=== PATIENT | male | born 1985 ===

== ENCOUNTER → 2022-05-11 | Outpatient (CLI) | payer OTHER ==
[2022-05-11 22:41] LABS: Campylobacter Sp Not Detected (NOT DETECT); Plesiomonas Shigelloides Not Detected (NOT DETECT); Salmonella Sp Not Detected (NOT DETECT)
[2022-05-11 22:42] LABS: Adenovirus F 40/41 Not Detected (NOT DETECT); Astrovirus Not Detected (NOT DETECT); Cryptosporidium Not Detected (NOT DETECT); Cyclospora Cayetanensis Not Detected (NOT DETECT); E. Coli O157 Not Detected (NOT DETECT); Entamoeba Histolytica Not Detected (NOT DETECT); Enteroaggregative E. coli-EAEC Not Detected (NOT DETECT); Enteropathogenic E. coli-EPEC Not Detected (NOT DETECT); Enterotoxigenic E. coli-ETEC Not Detected (NOT DETECT); Giardia Lamblia Not Detected (NOT DETECT); Norovirus GI/GII Not Detected (NOT DETECT); Rotavirus A Not Detected (NOT DETECT); Sapovirus Not Detected (NOT DETECT); Shiga Toxin-prod E. coli-STEC Not Detected (NOT DETECT); Shigella/Enteroin E. coli-EIEC Not Detected (NOT DETECT); Vibrio Cholerae Not Detected (NOT DETECT); Vibrio Sp Not Detected (NOT DETECT); Yersinia Enterocolitica Not Detected (NOT DETECT)
== END ==
LOC: LAB 17:04 → LAB SHORT 17:04
PROVIDERS: Physician Assistant Medical
DX: R19.7 Diarrhea, unspecified (principal)
CPT/HCPCS: 87507

== ENCOUNTER 2022-06-09 10:24 | Inpatient (IN) | payer OTHER ==
[~2022-06-09] VITALS: Ht 172.7 cm; Wt 67.2 kg
[2022-06-09] MEDS ORDERED: CYMBALTA30 MG PO (11:04)
[2022-06-09 11:41] LABS: Source, Urine Clean Catch
[2022-06-09 11:45] LABS: BASOPHILS ABSOLUTE AUTO 0.04 K/mm3 (0.00-0.23); BASOPHILS PERCENT AUTO 1 % (0-2); EOSINOPHILS ABSOLUTE AUTO 0.19 K/mm3 (0.00-0.68); EOSINOPHILS PERCENT AUTO 2 % (0-6); Hematocrit 41.4 % (37.0-53.0); IMMATURE GRAN ABSOLUTE AUTO 0.02 K/mm3 (0.00-0.10); IMMATURE GRAN PERCENT AUTO 0 % (0-1); LYMPHOCYTES ABSOLUTE AUTO 1.69 K/mm3 (0.84-5.20); LYMPHOCYTES PERCENT AUTO 21 % (21-46); MONOCYTES ABSOLUTE AUTO 0.63 K/mm3 (0.16-1.47); MONOCYTES PERCENT AUTO 8 % (4-13); Mean Corpuscular HGB 24.1 pg (26.0-34.0); Mean Corpuscular HGB Conc 31.4 g/dL (31.5-36.5); Mean Corpuscular Volume 77 fL (80-100); Mean Platelet Volume 10.1 fL (9.1-12.4); NEUTROPHILS ABSOLUTE AUTO 5.57 K/mm3 (1.96-9.15); NEUTROPHILS PERCENT AUTO 69 % (41-73); Platelet Count 216 K/mm3 (150-400); RDW Coefficient Variation 15.9 % (11.7-14.2); RDW Standard Deviation 44.1 fL (35.1-46.3); Red Blood Cell Count 5.39 M/mm3 (4.30-5.90); White Blood Cell Count 8.14 K/mm3 (4.00-11.30)
[2022-06-09 11:47] LABS: Appearance, Urine Clear (Clear); Bilirubin, Urine Neg (Neg); Blood, Urine Neg (Neg); Color, Urine Yellow (P-Yellow); Glucose Qualitative, Urine Neg (Neg); Ketones, Urine Neg (Neg); Leukocyte Esterase, Urine Neg (Neg); Nitrite, Urine Neg (Neg); Protein, Urine Neg (Neg); Urobilinogen, Urine NORM (Normal)
[2022-06-09 12:02] LABS: Albumin, Blood 3.8 g/dL (3.4-5.0); Albumin/Globulin Ratio 1.2 (0.8-1.8); Bilirubin, Total 0.7 mg/dL (0.1-1.0); Calcium, Blood 8.9 mg/dL (8.5-10.1); Creatinine, Blood 0.95 mg/dL (0.60-1.20); Globulin, Blood 3.3 g/dL (2.2-4.0); Potassium, Blood 3.9 mmol/L (3.5-5.5); Total Protein, Blood 7.1 g/dL (6.4-8.2)
--- NOTE | 2022-06-10 04:45 | NUR ---
SHIFT SUMMARY PT ER ADMIT THIS SHIFT WITH A DX OF INTUSSUSCEPTION AFTER EXPERIENCING SEVERE ABD PAIN AND DIARRHEA AT HOME. PT HAS BEEN ADMITTED WITH A SURGICAL CONSULT IN PLACE WITH DR. MELISSA. PT HAS BEEN NPO SINCE ARRIVAL TO UNIT. HE HAS NO COMPLAINTS OF ABD T/O SHIFT, NO N/V, NO GI COMPLAINTS. PT HAS RESTED T/O THE NIGHT, IVF INFUSING, VITALS STABLE. PT ANXIOUS, BUT PLESANT AND COOPERATIVE WITH CARE. BED IN LOWEST POSITION, CALL LIGHT WITHIN REACH.
[2022-06-10 07:16] LABS: BASOPHILS ABSOLUTE AUTO 0.03 K/mm3 (0.00-0.23); BASOPHILS PERCENT AUTO 1 % (0-2); EOSINOPHILS ABSOLUTE AUTO 0.18 K/mm3 (0.00-0.68); EOSINOPHILS PERCENT AUTO 4 % (0-6); Hematocrit 36.7 % (37.0-53.0); Hemoglobin 11.7 g/dL (13.5-17.5); IMMATURE GRAN ABSOLUTE AUTO 0.01 K/mm3 (0.00-0.10); IMMATURE GRAN PERCENT AUTO 0 % (0-1); LYMPHOCYTES ABSOLUTE AUTO 1.69 K/mm3 (0.84-5.20); LYMPHOCYTES PERCENT AUTO 33 % (21-46); MONOCYTES ABSOLUTE AUTO 0.51 K/mm3 (0.16-1.47); MONOCYTES PERCENT AUTO 10 % (4-13); Mean Corpuscular HGB 24.4 pg (26.0-34.0); Mean Corpuscular HGB Conc 31.9 g/dL (31.5-36.5); Mean Corpuscular Volume 77 fL (80-100); Mean Platelet Volume 9.8 fL (9.1-12.4); NEUTROPHILS ABSOLUTE AUTO 2.78 K/mm3 (1.96-9.15); NEUTROPHILS PERCENT AUTO 53 % (41-73); Platelet Count 179 K/mm3 (150-400); RDW Coefficient Variation 15.8 % (11.7-14.2)
[2022-06-10 07:33] LABS: Albumin, Blood 3.3 g/dL (3.4-5.0); Albumin/Globulin Ratio 1.2 (0.8-1.8); Bilirubin, Total 1.3 mg/dL (0.1-1.0); Bun/Creatinine Ratio 17.4 (12.0-20.0); Calcium, Blood 8.7 mg/dL (8.5-10.1); Creatinine, Blood 0.86 mg/dL (0.60-1.20); Globulin, Blood 2.7 g/dL (2.2-4.0); Potassium, Blood 3.7 mmol/L (3.5-5.5)
--- NOTE | 2022-06-10 08:47 | NUR ---
AT APPROXIMATELY 08:30 THE PT HAD AN EPISODE OF INCONTINENCE. HE ALSO REPORTED TO THIS FIBREGLASS LAMINATOR THAT HE "ACCIDENTALLY MASTURBATED". PT WAS PROVIDED WITH [facility]OSP[facility] G[facility] AND NEW CLOTHING.
--- NOTE | 2022-06-10 15:53 | NUR ---
SHIFT SUMMARY PATIENT RESTED COMFORTABLY THROUGHOUT THE SHIFT. COOPERATIVE AND ABLE TO MAKE NEEDS KNOWN. VSS, BOWEL SOUNDS NORMOACTIVE. HE HAD ONE BM THIS SHIFT. HIS PAIN HAS BEEN TOLERABLE AND HE HAS NOT REQUESTED ANY PAIN MEDICATIONS. CALL LIGHT WITHIN REACH.
[2022-06-10 16:10] LABS: Percent Saturation 6.8 % (20.0-50.0)
--- NOTE | 2022-06-11 04:20 | NUR ---
SHIFT SUMMARY PT A&OX4, PLEASANT AND COOPERATIVE WITH CARE. NO ACUTE CHANGES. TOLERATING CLEAR'S WELL, NO N/V. PT HAS NOT NEEDED PAIN COVERAGE THIS SHIFT. INDEPENDENT IN ROOM. CALLS APPROPRIATELY, CALL LIGHT WITHIN REACH.
[2022-06-11 09:20] LABS: Hematocrit 37.9 % (37.0-53.0)
[2022-06-11 09:23] LABS: Bun/Creatinine Ratio 9.7 (12.0-20.0); Creatinine, Blood 0.93 mg/dL (0.60-1.20); Potassium, Blood 3.5 mmol/L (3.5-5.5)
--- NOTE | 2022-06-11 15:41 | NUR ---
06/11/22 1541 Errol Bhat HISTORY, CHART, MEDICATIONS AND ALLERGIES REVIEWED BEFORE START OF PROCEDURE. PATIENT CONFIRMS NPO STATUS AND AGREES WITH SCHEDULED PROCEDURE. 3-LEAD EKG REVIEWED WITH PHYSICIAN PRIOR TO START OF PROCEDURE. MONITOR INTACT WITH CONTINUOUS PULSE OXIMETRY,CAPNOGRAPHY, 3-LEAD EKG, INTERMITTENT BP. SUPPLEMENTAL O2 TO BE TITRATED THROUGHOUT PROCEDURE TO MAINTAIN O2 SATURATION ABOVE 90%. PATIENT DETERMINED TO BE ASA APPROPRIATE FOR PROPOFOL SEDATION PRIOR TO START OF PROCEDURE BY
--- NOTE | 2022-06-11 19:10 | NUR ---
SHIFT SUMMARY POD0 COLONOSCOPY, A/OX 4, VSS, TOLERATING CLEARS, AMBULATING POST OP. NO ACUTE EVENTS THIS SHIFT, PLAN TO GO NPO SATURDAY AT MIDNIGHT AND SURGERY SATURDAY. CALL LIGHT IN REACH, WILL CTM AND REPORT TO ONCOMING NOC RN.
--- NOTE | 2022-06-12 05:39 | NUR ---
PT VSS T/O NIGHT. PT C/O ABD CRAMPING, MED W/TYLENOL AND TROADOL W/LITTLE RELIEF. AMBULATION ENC. BT HYPO, PT REP NO FLATUS YET. PT MARIA DEL CARMEN CL PO, DENIES N/V, IS VOIDING URINE W/O DIFFICULTY. PT AMB INDEP IN ROOM, ENC TO AMB IN HALLWAY MARIA DEL CARMEN. PT USING CALL LIGHT FOR ASSISTANCE. PLAN FOR SURGERY WED.
--- NOTE | 2022-06-12 17:55 | NUR ---
SHIFT SUMMARY S/P COLONOSCOPY POST INTUSSUSCEPTION, A/OX 4, VSS, TOLERATING PO, AMBULATES INDEPENDENTLY, PAIN TOLERABLE c SOME ABD CRAMPING REPORTED. PLAN TO GO TO OR TOMORROW, NPO AT MIDNIGHT TONIGHT. NO ACUTE EVENTS THIS SHIFT, CALL LIGHT IN REACH, WILL CTM AND REPORT TO ONCOMING NOC RN.
--- NOTE | 2022-06-13 04:33 | NUR ---
SHIFT SUMMARY: PT RESTED T/O THE SHIFT. A&OX4. VERY PLEASANT. MEDICATED FOR ANXIETY ONCE DURING THE SHIFT. C/O SLIGHT STOMACH DISCOMFORT THAT HE RELATED TO ANXIETY. ONCE MEDICATED, DISCOMFORT SEEMED TO RESOLVE. PRIOR TO NPO PT WAS TOLERATING CLEAR LIQUIDS. NPO SINCE 0100. SURGICAL PREVENTION PACKET COMPLETED WITH PT ASSISTANCE. INDEPENDENT IN ROOM. PLANS FOR SURGERY THIS AFTERNOON WITH .
[2022-06-13 05:00] LABS: Hematocrit 32.9 % (37.0-53.0); Hemoglobin 10.6 g/dL (13.5-17.5); Mean Corpuscular HGB 24.5 pg (26.0-34.0); Mean Corpuscular HGB Conc 32.2 g/dL (31.5-36.5); Mean Corpuscular Volume 76 fL (80-100); Mean Platelet Volume 10.2 fL (9.1-12.4); Platelet Count 180 K/mm3 (150-400); RDW Coefficient Variation 15.9 % (11.7-14.2); RDW Standard Deviation 43.4 fL (35.1-46.3); Red Blood Cell Count 4.32 M/mm3 (4.30-5.90); White Blood Cell Count 5.57 K/mm3 (4.00-11.30)
[2022-06-13 05:19] LABS: Bun/Creatinine Ratio 10.3 (12.0-20.0); Calcium, Blood 8.5 mg/dL (8.5-10.1); Creatinine, Blood 0.97 mg/dL (0.60-1.20); Potassium, Blood 3.4 mmol/L (3.5-5.5)
--- NOTE | 2022-06-13 13:24 | NUR ---
PATIENT IS JUST NOW LEAVING FOR THE OR.
--- NOTE | 2022-06-13 13:59 | NUR ---
PATIENT AMBULATING IN ROOM 211 UPON ARRIVAL TO ROOM. TRANSPORTED TO DAY SURGERY IN SURGICAL FLOOR BED. History, Chart, Medications and Allergies reviewed before start of procedure.Patient confirms NPO status and agrees with scheduled surgery. PATIENT REPORTS USED CHLOREHEXEDINE WIPES LAST NIGHT, NOT THIS MORNING. CLIP PREP DONE AND CHLOREHEXIDING WIPES DONE. NEW IV PACED. 20 GAUGE PIV TO RIGHT AC FLUSHED, PATENT.
--- NOTE | 2022-06-13 15:20 | NUR ---
EPIDURAL PLACED PER DR. HELTON AFTER TIME OUT. TEST DOSE NEGATIVE
--- NOTE | 2022-06-13 19:41 | NUR ---
PATIENT CAME BACK FROM PACU TODAY AT 1900. POD 0 BOWEL RESECTION PATIENT IS DROWSY BUT IS EASILY AROUSABLE WITH TOUCH AND ANSWERS QUESTIONS APPROPRIATELY. VS ARE WNL AND IS ON RA. PATIENT HAS EPIDURAL FOR PAIN BUT DENIES NUMBNESS AND TINGLING THROUGHOUT EXTREMITIES. HE CAN MOVE FINGERS AND TOES WHEN ASKED. PATIENT HAS MOST PAIN ON HIS NECK. WILL MEDICATE PER EMAR. PATIENT HAS AN ABD MIDLINE WITH LINDA DRESSING THAT IS C/D/I. BOWEL TONES ARE HYPOACTIVE. HE IS TOLERATING SMALL AMOUNTS OF PO WATER. PATIENT HAD A MARCOS PLACED DURING THE PROCEDURE AND IS HANGNING PER GRAVITY AND HAS YELLOW OUTPUT. PATIENT IS LAYING IN BED. CALL LIGHT WITHIN REACH.
--- NOTE | 2022-06-13 23:04 | NUR ---
516 HRS: CALLED AND SPOKE TO DR MELISSA. UPDATED HIM ON HIGH HEART RATE, PATIENT ANXIETY, AND INCREASED TEMPERATURE. DR MELISSA DIRECTED TO ADMINISTER ATIVAN FIRST TO SEE HOW HEART RATE IS EFFECTED. DISCUSSED WITH HIM HOW BLANKETS WERE REMOVED AND PT ROOM TEMPERATURE WAS TURNED DOWN. ADVISED TO MONITOR TEMPERATURE. PT DENIES CHEST PAIN OR SOB.
--- NOTE | 2022-06-14 05:01 | NUR ---
SHIFT SUMMARY: PODx1 SIGMOID COLECTOMY. PT PAIN WELL MANAGED VIA DUCT CLEANER PUMP. PT TOLERATING SMALL AMOUNTS OF WATER AT THIS TIME. HEART RATE HAS BEEN SLIGHTLY ELEVATED T/O THE SHIFT. DISCUSSED WITH DR. MELISSA. DENIES CHEST PAIN OR SOB. PT WAS ANXIOUS T/O THE SHIFT. PT GIVEN ATIVAN AND ANXIETY APPEARED TO LESSEN AND HR RESPONDED. BP HAS BEEN STABLE. MARCOS CATHETER REMAINS IN PLACE. PATENT AND DRAINING. PT WAS ABLE TO REST COMFORTABLY DURING THE SECOND PART OF THE SHIFT. CALL LIGHT REMAINS IN REACH.
[2022-06-14 05:58] LABS: BASOPHILS ABSOLUTE AUTO 0.01 K/mm3 (0.00-0.23); BASOPHILS PERCENT AUTO 0 % (0-2); EOSINOPHILS PERCENT AUTO 0 % (0-6); Hematocrit 39.4 % (37.0-53.0); Hemoglobin 12.1 g/dL (13.5-17.5); IMMATURE GRAN ABSOLUTE AUTO 0.07 K/mm3 (0.00-0.10); IMMATURE GRAN PERCENT AUTO 1 % (0-1); LYMPHOCYTES ABSOLUTE AUTO 0.77 K/mm3 (0.84-5.20); LYMPHOCYTES PERCENT AUTO 5 % (21-46); MONOCYTES ABSOLUTE AUTO 1.11 K/mm3 (0.16-1.47); MONOCYTES PERCENT AUTO 8 % (4-13); Mean Corpuscular HGB 24.1 pg (26.0-34.0); Mean Corpuscular HGB Conc 30.7 g/dL (31.5-36.5); Mean Corpuscular Volume 78 fL (80-100); NEUTROPHILS ABSOLUTE AUTO 12.59 K/mm3 (1.96-9.15); NEUTROPHILS PERCENT AUTO 87 % (41-73); Platelet Count 218 K/mm3 (150-400); RDW Coefficient Variation 16.4 % (11.7-14.2); RDW Standard Deviation 46.3 fL (35.1-46.3); Red Blood Cell Count 5.03 M/mm3 (4.30-5.90); White Blood Cell Count 14.55 K/mm3 (4.00-11.30)
[2022-06-14 06:29] LABS: Bun/Creatinine Ratio 11.9 (12.0-20.0); Calcium, Blood 8.5 mg/dL (8.5-10.1); Creatinine, Blood 1.01 mg/dL (0.60-1.20); Potassium, Blood 4.7 mmol/L (3.5-5.5)
--- NOTE | 2022-06-14 11:07 | NUR ---
PTS PARENTS HERE TO VISIT. PT REPORTS SLIGHT TINGLING OF LEFT HAND FINGERS, PT ASKED THAT HANDS BE MASSAGED, PTS MOTHER MASSAGING PATIENT. PT REPORTS UPPER CHEST SORE FROM HICCUPS.
--- NOTE | 2022-06-14 11:25 | NUR ---
0900 PT HAVING NEAR CONTINOUS HICCUPS
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
--- NOTE | 2022-06-14 13:54 | NUR ---
PT HAD SMALL AMOUNT OF EMESIS AFTER WHICH HICCUPS RESOLVED. UP TO BEDSIDE COMMODE WITH 2 PERSON MINIMAL ASSIST, PT DENIES PAIN, REPORTS LEGS FEEL LIKE THEY ARE CRAMPING WHILE OOB
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
--- NOTE | 2022-06-14 17:04 | NUR ---
NO HICCUPS AT THIS TIME, PT REPORTS UPPER ABD PAIN HAS DECREADED TO 2
--- NOTE | 2022-06-14 17:42 | NUR ---
EPIDURAL CATHETER INPLACE, DIME SIZED AREA OF BLOODY DRAINAGE AT INSERTION SITE WHICH IS UNCHANGED IN AMOUNT FROM INITIAL ASSESSMENT. PT WITH FULL MOVEMENT AND SENSATION. PT REPRORTED PAIN LEVEL OF 6-8/10 FOR PERIOD OF TIME THIS AFTERNOON WHICH HE STATES WAS IN UPPER ABD AND FROM HAVING HICCUPS. PT REPORTS PAIN AT THIS TIME IS 2/10. ABD DRESSING WITH LINDA CLEAN, DRY AND INTACT WITH LINDA FUNCTIONING. PTS MOM AT BEDSIDE MUCH OF SHIFT AND REMINDING PATIENT TO DO HOURLY IS. PT RESTING WITH EYES CLOSED BETWEEN VITAL SIGN CHECKS
--- NOTE | 2022-06-15 01:30 | NUR ---
0130 HRS: PT REPORTING CONITNUOUS HICCUPS THAT STARTED UP AGAIN AROUND 2200. PT STATES HE HAS HAD THEM T/O THE DAY. DENYING NAUSEA AT THIS TIME.
[2022-06-15 04:35] LABS: BASOPHILS ABSOLUTE AUTO 0.01 K/mm3 (0.00-0.23); BASOPHILS PERCENT AUTO 0 % (0-2); EOSINOPHILS ABSOLUTE AUTO 0.06 K/mm3 (0.00-0.68); EOSINOPHILS PERCENT AUTO 1 % (0-6); Hematocrit 35.8 % (37.0-53.0); Hemoglobin 11.3 g/dL (13.5-17.5); IMMATURE GRAN ABSOLUTE AUTO 0.05 K/mm3 (0.00-0.10); IMMATURE GRAN PERCENT AUTO 1 % (0-1); LYMPHOCYTES ABSOLUTE AUTO 0.84 K/mm3 (0.84-5.20); LYMPHOCYTES PERCENT AUTO 8 % (21-46); MONOCYTES ABSOLUTE AUTO 1.03 K/mm3 (0.16-1.47); MONOCYTES PERCENT AUTO 10 % (4-13); Mean Corpuscular HGB 24.6 pg (26.0-34.0); Mean Corpuscular HGB Conc 31.6 g/dL (31.5-36.5); Mean Corpuscular Volume 78 fL (80-100); Mean Platelet Volume 9.8 fL (9.1-12.4); NEUTROPHILS ABSOLUTE AUTO 8.88 K/mm3 (1.96-9.15); NEUTROPHILS PERCENT AUTO 82 % (41-73); Platelet Count 189 K/mm3 (150-400); RDW Coefficient Variation 16.3 % (11.7-14.2); RDW Standard Deviation 46.4 fL (35.1-46.3); White Blood Cell Count 10.87 K/mm3 (4.00-11.30)
[2022-06-15 04:56] LABS: Bun/Creatinine Ratio 10.3 (12.0-20.0); Calcium, Blood 8.1 mg/dL (8.5-10.1); Creatinine, Blood 0.87 mg/dL (0.60-1.20); Phosphorus, Blood 2.5 mg/dL (2.5-4.9)
--- NOTE | 2022-06-15 05:09 | NUR ---
PT HICCUPS SEEM TO HAVE SUBSIDED AT THIS TIME. PT RESTING IN BED WITH RECEIVING DISTRIBUTION STATION OPERATOR AND CALL LIGHT IN REACH. HEART RATE IS AT 88.
--- NOTE | 2022-06-15 05:17 | NUR ---
SHIFT SUMMARY: A&0X4. C/O HICCUPS T/O THE NIGHT THAT CAME AND WENT. PAIN WAS WELL CONTROLLED WITH SAP SD ANALYST. MIDLINE LINDA REMAINS IN PLACE AND UNCHANGED SINCE BEGINNING OF SHIFT, SUCTION IS WORKING. EPIDURAL IN PLACE. SITE APPEARS TO BE UNCHANGED WELL. MARCOS REMAINS IN PLACE AND IS DRAINING. PT TOLERATING FLUIDS AND CLEAR LIQUIDS AT THIS TIME. DRANK SMALL SIPS OF WATER T/O THE NIGHT. ENCOURAGED TO USE IS WHILE AWAKE. PT RESTING AT THIS TIME WITH CALL LIGHT IN REACH.
--- NOTE | 2022-06-15 11:42 | NUR ---
0915 PT LYING IN BED WITH EYES CLOSED, NO HICCUPS AT THIS TIME
--- NOTE | 2022-06-15 17:28 | NUR ---
AMBULATED IN HALLWAYS, UP TO CHAIR WITH STANDBY ASSIST. PT HAS HAD NO FURTHER HICCUPS AFTER INITIAL EPISODE THIS AM. PT CHEEERFUL, TALKATIVE AND STATES "IM EXCITED ABOUT HOW I AM DOING" NO NAUSEA. EPIDURAL IN PLACE AND PT REPORTS NO PAIN AT THIS TIME
--- NOTE | 2022-06-16 05:06 | NUR ---
SUMMARY PT PAIN MANAGED VERY WELL. PT HAS BEEN SLEEPING FOR MOST OF SHIFT. EPIDURAL DRESSING INTACT, AND MIDLINE LINDA C/D/I. PT MARCOS DRAING TO GRAVITY.
[2022-06-16 05:45] LABS: BASOPHILS ABSOLUTE AUTO 0.02 K/mm3 (0.00-0.23); BASOPHILS PERCENT AUTO 0 % (0-2); EOSINOPHILS PERCENT AUTO 3 % (0-6); Hematocrit 32.2 % (37.0-53.0); Hemoglobin 10.1 g/dL (13.5-17.5); IMMATURE GRAN ABSOLUTE AUTO 0.03 K/mm3 (0.00-0.10); IMMATURE GRAN PERCENT AUTO 0 % (0-1); LYMPHOCYTES ABSOLUTE AUTO 1.45 K/mm3 (0.84-5.20); LYMPHOCYTES PERCENT AUTO 19 % (21-46); MONOCYTES ABSOLUTE AUTO 0.78 K/mm3 (0.16-1.47); MONOCYTES PERCENT AUTO 10 % (4-13); Mean Corpuscular HGB 24.5 pg (26.0-34.0); Mean Corpuscular HGB Conc 31.4 g/dL (31.5-36.5); Mean Corpuscular Volume 78 fL (80-100); Mean Platelet Volume 9.6 fL (9.1-12.4); NEUTROPHILS ABSOLUTE AUTO 5.18 K/mm3 (1.96-9.15); NEUTROPHILS PERCENT AUTO 68 % (41-73); Platelet Count 152 K/mm3 (150-400); RDW Coefficient Variation 16.6 % (11.7-14.2); RDW Standard Deviation 47.1 fL (35.1-46.3); Red Blood Cell Count 4.13 M/mm3 (4.30-5.90); White Blood Cell Count 7.66 K/mm3 (4.00-11.30)
[2022-06-16 06:13] LABS: Albumin, Blood 2.5 g/dL (3.4-5.0); Anion Gap 6 mmol/L (6-16); Blood Urea Nitrogen 7 mg/dL (8-24); Bun/Creatinine Ratio 8.3 (12.0-20.0); CO2, Blood 26 mmol/L (21-32); Calcium, Blood 8.4 mg/dL (8.5-10.1); Chloride, Blood 110 mmol/L (98-108); Creatinine, Blood 0.84 mg/dL (0.60-1.20); Glomerular Filtration Rate 114 (60-); Glucose, Blood 82 mg/dL (70-99); Phosphorus, Blood 2.7 mg/dL (2.5-4.9); Potassium, Blood 4.3 mmol/L (3.5-5.5); Sodium, Blood 142 mmol/L (136-145)
--- NOTE | 2022-06-16 16:04 | NUR ---
SHIFT SUMMARY POD 4 SIG COLECTOMY EPIDURAL REMOVED TODAY, PT REPORTS PAIN CONTROLLED PER EMAR. MARCOS REMOVED PT HAS VOIDED BUT REPORTS FORGETTING TO USE URINAL. DISCOMFORT IN HIS BELLY BUT HE REPORTS TOLERABLE PAIN LEVEL. HE HAS BEEN UP AND AMBULATING FREQUENTLY IN THE HALLS, IND IN ROOM. TOLERATING DIET WELL, NO NAUSEA.
--- NOTE | 2022-06-17 04:22 | NUR ---
SUMMARY PT PAIN MANAGED WELL. PT DRESSING C/D/I. PT REPORTS FLATUS BUT NO BM. PT HAS BEEN VOIDING WITHOUT ISSUE. PT HAS BEEN UP FOR MOST OF SHIFT. PT IS INDEPENDANT IN ROOM. PT CURRENTLY RESTING COMFORTABLY. CALL LIGHT IN REACH.
[2022-06-17 04:59] LABS: BASOPHILS ABSOLUTE AUTO 0.02 K/mm3 (0.00-0.23); BASOPHILS PERCENT AUTO 0 % (0-2); EOSINOPHILS ABSOLUTE AUTO 0.19 K/mm3 (0.00-0.68); EOSINOPHILS PERCENT AUTO 3 % (0-6); Hemoglobin 10.2 g/dL (13.5-17.5); IMMATURE GRAN ABSOLUTE AUTO 0.01 K/mm3 (0.00-0.10); IMMATURE GRAN PERCENT AUTO 0 % (0-1); LYMPHOCYTES ABSOLUTE AUTO 0.97 K/mm3 (0.84-5.20); LYMPHOCYTES PERCENT AUTO 15 % (21-46); MONOCYTES ABSOLUTE AUTO 0.56 K/mm3 (0.16-1.47); MONOCYTES PERCENT AUTO 9 % (4-13); Mean Corpuscular HGB 24.3 pg (26.0-34.0); Mean Corpuscular HGB Conc 32.9 g/dL (31.5-36.5); Mean Corpuscular Volume 74 fL (80-100); Mean Platelet Volume 9.8 fL (9.1-12.4); NEUTROPHILS ABSOLUTE AUTO 4.67 K/mm3 (1.96-9.15); NEUTROPHILS PERCENT AUTO 73 % (41-73); Platelet Count 168 K/mm3 (150-400); RDW Coefficient Variation 15.9 % (11.7-14.2); RDW Standard Deviation 43.1 fL (35.1-46.3); Red Blood Cell Count 4.19 M/mm3 (4.30-5.90); White Blood Cell Count 6.42 K/mm3 (4.00-11.30)
[2022-06-17 05:21] LABS: Albumin, Blood 2.6 g/dL (3.4-5.0); Anion Gap 8 mmol/L (6-16); Blood Urea Nitrogen 6 mg/dL (8-24); CO2, Blood 26 mmol/L (21-32); Calcium, Blood 8.4 mg/dL (8.5-10.1); Chloride, Blood 105 mmol/L (98-108); Creatinine, Blood 0.75 mg/dL (0.60-1.20); Glomerular Filtration Rate 118 (60-); Glucose, Blood 96 mg/dL (70-99); Phosphorus, Blood 3.1 mg/dL (2.5-4.9); Potassium, Blood 3.4 mmol/L (3.5-5.5); Sodium, Blood 139 mmol/L (136-145)
--- NOTE | 2022-06-17 16:03 | NUR ---
SHIFT SUMMARY PATIENT HAS DONE WELL TODAY, HE HAS BEEN AMBULATING THE HALLS, PASSING FLATUS AND HAD TWO BM'S PER HIS REPORT. MIDLINE DRESSING REMAINS CDI. TOELRATING PO WELL, PAIN WELL CONTROLLED PER EMAR AT THIS TIME. PATIENT VERY EXCITED TO DISCHARGE TOMORROW.
--- NOTE | 2022-06-18 04:47 | NUR ---
SUMMARY PAIN MANAGED WELL. PT AWAKE FOR MOST OF NIGHT. PT REPORTS PASSING FLATUS BUT DENIES HAVING A BM. PT DRINKING FLUIDS AND VOIDING WELL. CALL LIGHT IN REACH.
[2022-06-18 05:46] LABS: Albumin, Blood 2.7 g/dL (3.4-5.0); Anion Gap 10 mmol/L (6-16); Blood Urea Nitrogen 8 mg/dL (8-24); Bun/Creatinine Ratio 11.9 (12.0-20.0); CO2, Blood 24 mmol/L (21-32); Calcium, Blood 8.8 mg/dL (8.5-10.1); Chloride, Blood 106 mmol/L (98-108); Creatinine, Blood 0.67 mg/dL (0.60-1.20); Glomerular Filtration Rate 122 (60-); Glucose, Blood 80 mg/dL (70-99); Phosphorus, Blood 3.7 mg/dL (2.5-4.9); Potassium, Blood 3.6 mmol/L (3.5-5.5); Sodium, Blood 140 mmol/L (136-145)
[2022-06-18] MEDS ORDERED: HYDR1TAB94 PO (11:20)
--- NOTE | 2022-06-18 11:38 | NUR ---
PT ANXIOUS TO GO HOME, REPORTS TOLERATING REG DIET AND HAD A BM YESTERDAY, DR. BATRES WROTE DC ORDERS, DR. MELISSA OK'D FOR DC, F/U WITH DR. MELISSA THIS WEEK FOR STAPLE REMOVAL AND WITH DR. PEARSON IN 1 WEEK, DC INSTRUCTIONS GIVEN TO PT AND MOM, VERBALIZED UNDERSTANDING.
== END 2022-06-18 11:47 | disposition home or self-care (01) | DRG 330 ==
LOC: ER 10:24 → SURS 10:25
PROVIDERS: Family Medicine; Internal Medicine; Internal Medicine Gastroenterology; Physician Assistant; Surgery; ADMIT Internal Medicine
PROC: 0DBK8ZZ Excision of Ascending Colon, Via Natural or Artificial Opening Endoscopic (ICD-10-PCS; 2022-06-11)
PROC: 0DBN8ZX Excision of Sigmoid Colon, Via Natural or Artificial Opening Endoscopic, Diagnostic (ICD-10-PCS; principal; 2022-06-11 16:30)
PROC: 3E0H8KZ Introduction of Other Diagnostic Substance into Lower GI, Via Natural or Artificial Opening Endoscopic (ICD-10-PCS; 2022-06-11 16:30)
PROC: 0DTN0ZZ Resection of Sigmoid Colon, Open Approach (ICD-10-PCS; 2022-06-13)
DX: K56.1 Intussusception (principal); C18.7 Malignant neoplasm of sigmoid colon; D50.9 Iron deficiency anemia, unspecified; F41.9 Anxiety disorder, unspecified; E87.6 Hypokalemia; R06.6 Hiccough; E88.09 Other disorders of plasma-protein metabolism, not elsewhere classified; K63.5 Polyp of colon; I95.9 Hypotension, unspecified; Z79.899 Other long term (current) drug therapy; Z98.890 Other specified postprocedural states; Z87.448 Personal history of other diseases of urinary system
CPT/HCPCS: 36415; 74176; 80048; 80053; 80069; 81003; 82378; 82728; 83540; 83550; 83690; 84100; 85014; 85018; 85025; 85027; 88305; 88309; 96361; 96374; 96376; 99285-25; A9270; G0378; J0171; J0295; J1100; J1650; J1885; J2001; J2060; J2250; J2405; J2704; J2765; J2795; J3010; J3480; J7030; J7042; J7050; J7120

== ENCOUNTER 2023-07-23 11:31 | Day surgery (SDC) | payer OTHER ==
[~2023-07-23] VITALS: Ht 177.8 cm; Wt 73.5 kg
[~2023-07-23 11:31] MED LIST: ALPR1; DULO30 PO; HYDR1TAB94 PO
[2023-07-23 14:07] VITALS: BP 122/78
== END 2023-07-23 14:00 | disposition home or self-care (01) ==
LOC: ORSCSDS 11:31
PROVIDERS: Surgery
PROC: 0DJD8ZZ Inspection of Lower Intestinal Tract, Via Natural or Artificial Opening Endoscopic (ICD-10-PCS; principal; 2023-07-23 13:00)
DX: Z85.038 Personal history of other malignant neoplasm of large intestine (principal); Z79.899 Other long term (current) drug therapy
CPT/HCPCS: J2704; J7120